=== PATIENT | female | born 1980 | race Native Hawaiian/Other Pacific Islander ===

== ENCOUNTER 2020-11-21 13:22 | Outpatient (CLI) | payer OTHER | END 2020-11-21 23:47 | disposition home or self-care (01) | LOC: RAD 13:22 | PROVIDERS: ATTEND Emergency Medicine Emergency Medical Services | DX: R10.2 Pelvic and perineal pain (principal) ==

== ENCOUNTER 2021-04-14 11:58 | Outpatient (CLI) | payer OTHER | END 2021-04-14 15:00 | disposition home or self-care (01) | LOC: CT 11:58 | PROVIDERS: ATTEND Neurological Surgery | DX: M54.16 Radiculopathy, lumbar region (principal) ==